=== PATIENT | male | born 1985 | race Two or more races ===

== ENCOUNTER 2017-05-17 00:42 | Emergency (ER) | payer MEDICAID ==
--- NOTE | 2017-05-17 17:46 | ER Physician Documentation ---
DATE OF SERVICE: 05/17/2017 The patient came with sore throat for 3 days. No cough. No vomiting. Minimal tenderness in the costovertebral angle. Otherwise, no other symptoms. No allergies. HISTORY OF PRESENT ILLNESS: No significant complaints. No cough, no shortness of breath, no evidence of any pneumonia. Does not smoke, does not drink. No evidence of any heart problems, lung problems, COPD, emphysema, bronchitis. No evidence of any rheumatic fever, valvular disease or pericardial disease. PAST MEDICAL HISTORY: Benign and negative. PAST SURGICAL HISTORY: Negative. FAMILY HISTORY: Negative. MEDICATIONS: None. ALLERGIES: No allergies. Pain is 6/10, but it looks like he may be in pain of 1/10. PHYSICAL EXAMINATION: HEENT: Throat is not congested, maybe a little bit redness, but otherwise minimal if any tenderness in the left costal, in the throat area. The patient otherwise is negative. CARDIAC: Negative. Heart sounds are normal. ____ heart sound heard. Third heart sound negative. Fourth heart sound is absent. LUNGS: Clear. No rales, rhonchi, or bronchial wheezing. ABDOMEN: Soft, benign, negative. CENTRAL NERVOUS SYSTEM: Normal. CLINICAL IMPRESSION: The patient has some sore throat. PLAN: To send the patient home on azithromycin, Zithromax ADY to 500 to start, followed by 250 daily for 4 days and the patient to see his own physician. Tylenol on a p.r.n. basis and aewm-xte-vnfgxed Robitussin as needed. JOB# [id number]
== END 2017-05-17 01:05 | disposition home or self-care (01) ==
LOC: ER 00:42
DX: J02.9 Acute pharyngitis, unspecified (principal)
CPT/HCPCS: Z7502